=== PATIENT | female | born 1950 | race Caucasian/White ===

== ENCOUNTER 2025-11-05 07:53 | Day surgery (SDC) | payer OTHER, SELFPAY ==
[2025-11-03 12:55] VITALS: BMI 18.3
[2025-11-05 08:39] VITALS: BP 165/75; PULSE 87; RESP 16; TEMP 36.6; O2SAT 100
[2025-11-05] MEDS: LACTATED RINGERS 1,000 ML 42 ML IV (08:48)
--- NOTE | 2025-11-05 09:09 | PM.HP.IH.1 ---
History of Present Illness History of Present Illness Date Patient Seen: 11/05/25 Time Patient Seen: 09:10 Chief complaint: Screening Colonoscopy Narrative: Reina is a 75-year-old woman who presents for a colonoscopy. Her last colonoscopy was normal and was in approximately [address] Jurado. Her mother had colon cancer in her 40s. [facility] Medical History (Updated 11/05/25 @ 09:10 by Eleazar Corrigan MD) Arthritis Diverticulitis Hearing loss Mixed hyperlipidemia Surgical History (Updated 11/04/25 @ 09:22 by Sarah Caro RN) Hx of colonoscopy Social History Smoking Status: Never smoker alcohol intake: never Meds Home Medications and Allergies Home Medications ?Medication ?Instructions ?Recorded ?Confirmed ?Type sodium,potassium,mag sulfates 17.5 See Rx Instructions PO .COMPLEX 10/01/25 11/05/25 Rx gram-3.13 gram-1.6 gram oral soln #354 mL (Suprep Bowel Prep Kit) Allergies Allergy/AdvReac Type Severity Reaction Status Date / Time ibuprofen Allergy Verified 11/05/25 08:28 Influenza Virus Vaccines AdvReac Verified 11/05/25 08:28 Sulfa (Sulfonamide AdvReac Verified 11/05/25 08:28 Antibiotics) Exam Vital Signs (past 8 hours): - 11/05/25 08:39 Temperature 97.8 F Pulse Rate 87 Respiratory Rate 16 Blood Pressure 165/75 H Pulse Oximetry 100 Oxygen Delivery Method Room Air Oxygen Delivery Method Room Air Const General: No acute distress Assessment & Plan Assessment and plan (1) Colon cancer screening: Status: Acute (2) Family history of colon cancer: Status: Acute Plan Colonoscopy for family history of colon cancer. Time-Based Coding :: [TOTAL MINUTES] spent with patient and on the chart (including review of chart, obtaining history, exam, reviewing outside data, placing orders, documenting exam and treatment plan, and counseling patient) on [DATE]. [employer] Work[employer] Document charge(s): No
[2025-11-05 09:40] VITALS: BP 115/55; PULSE 75; RESP 16; TEMP 36.2; O2SAT 98
--- NOTE | 2025-11-05 09:44 | P.OP.COLON_ITS ---
Operative Date/Time/Diagnoses Date of procedure: 11/05/25 Time of procedure: 09:44 Pre-op diagnosis: Family history of colon cancer Post-op diagnosis: same Procedure & Clinicians Study performed: Colonoscopy Same procedure(s) as scheduled: Yes Surgeon: Eleazar Corrigan Anesthesia Type: MAC +/- Procedure Notes Procedure in detail: Surgeon: Eleazar Corrigan MD Anesthesia: Silvia Mckeon [employer]ACH[employer]PARTMENT FLOORPERSON Procedure: The patient was brought to the endoscopy suite, placed in left l ateral decubitus position. The patient was connected to monitoring devices. A time-out was performed. Sedation was administered. Once the patient was adequately sedated, a digital rectal exam was performed and was normal. The scope was then inserted and advanced to the cecum where the appendiceal orifice was identified and photographed. The scope was then slowly withdrawn over greater than 6 minutes. The mucosa was thoroughly inspected. There was moderate sigmoid diverticulosis. The scope was retroflexed in the rectum. No other abnormalities were seen. The scope was straightened and removed. The patient was awakened and brought to recovery. Scope withdrawal time: 6 minutes Sedation time: 12 minutes Findings: Moderate sigmoid colon diverticulosis Estimated Blood Loss: 0 Complications: none Post-procedure Disposition: PACU
[2025-11-05 09:45] VITALS: BP 111/60; PULSE 87; RESP 16; O2SAT 98
[2025-11-05 09:50] VITALS: BP 112/70; PULSE 75; RESP 16; O2SAT 98
[2025-11-05 09:58] VITALS: BP 115/74; PULSE 74; RESP 15; TEMP 36.2; O2SAT 98
== END 2025-11-05 10:15 | disposition home or self-care (01) ==
PROVIDERS: Family Provider Family Medicine; PCP Family Medicine; Referring Provider Surgery; Visit Provider Surgery
PROC: 0DJD8ZZ Inspection of Lower Intestinal Tract, Via Natural or Artificial Opening Endoscopic (ICD-10-PCS; CPT 45378; principal; 2025-11-05 09:00)
DX: Z12.11 Encounter for screening for malignant neoplasm of colon (principal); Z80.0 Family history of malignant neoplasm of digestive organs; K57.30 Diverticulosis of large intestine without perforation or abscess without bleeding
CPT/HCPCS: G0105; J2704; J7120